=== PATIENT | female | born 1960 | race Caucasian/White ===

== ENCOUNTER 2017-05-28 06:51 | Day surgery (SDC) | payer OTHER ==
[2017-05-27 13:05] VITALS: BMI 26.4
[~2017-05-28 06:51] MED LIST: FLU VACC QS2017-18 36 mo. & older 0.5 ML SYRINGE IM ONE
[2017-05-28 07:27] VITALS: BP 141/73; TEMP 98.3
--- NOTE | 2017-05-28 10:09 | CT ---
CT MYELOGRAM OF LUMBAR SPINE: Date: 05/28/17 COMPARISON: 06/10/12. HISTORY: Bilateral lower extremity radiculopathy, back pain. TECHNIQUE: Following the intrathecal administration of iodinated contrast media, axial CT imaging at 2.5 mm int ervals obtained from lower thoracic spine through lower sacrum without IV contrast. Coronal and sagi ttal reformatted imaging obtained. FINDINGS: There are scattered atherosclerotic calcifications within the abdominal aorta and arterial structure s of the pelvis. A stimulating device is present along the ventral margin of the psoas muscle inferi michelle on the left. There are associated stimulating leads which terminate anteriorly at the L4-5 leve l. Disconnected posterior stimulating leads noted in the L4-5 region. There is no anterolisthesis or retrolisthesis seen within the lumbar spine. There are five lumbar-type vertebral bodies, the conus medullaris terminating in the T12-L1 region. T12-L1: T12 vertebral body demonstrates hypoplastic ribs. No central canal or neural foraminal stenosis. L1-2: Mild bilateral facet hypertrophy. No significant central canal or neural foraminal stenosis. L2-3: Mild bilateral facet hypertrophy with no significant central canal or neural foraminal stenosis. L3-4: There is mild disc space narrowing and mild disc bulge with partial effacement of the ventral thecal sac. There is moderate bilateral facet hypertrophy and hypertrophy of the ligamentum flavum. These findings lead to a mild to moderate degree of central canal stenosis, which does not appear signific antly changed when compared to the prior study. There is moderate left and mild right neural foramin al stenosis, not significantly changed. L4-5: There is disc space narrowing and disc desiccation with vacuum disc formation, similar when compared to the prior examination. There is mild stable anterior osteophyte formation. Laminectomy changes are present with no central canal stenosis. There is facet hypertrophy with oste ophyte encroachment on bilateral neural foramina and moderate bilateral neural foraminal stenosis, s imilar when compared to the prior exam. L5-S1: Mild bilateral facet hypertrophy. No significant central canal or neural foraminal stenosis. No worr isome lytic or blastic bone lesions. No acute osseous abnormality. IMPRESSION: Postoperative and degenerative changes within the lumbar spine, most prominent at L3-4 and L4-5 as d etailed above, not significantly changed when compared to the 2012 exam. POS: [facility]
--- NOTE | 2017-05-29 10:56 | RAD ---
LUMBAR SPINE MYELOGRAM: Date: 05/28/17 HISTORY: 56-year-old female with bilateral lower extremity radiculopathy and back pain, multiple prior back s urgeries, including prior laminectomy. FINDINGS: Informed consent for lumbar spine myelogram obtained prior to the procedure. Supervisor Offset Plate Preparation imaging demonstrates a stimulating device with numerous associated leads overlying the L3, L4, and L5 regions. There is evidence of prior laminectomy at L4-5. The lateral exam demonstrates no an terolisthesis or retrolisthesis. There is multilevel lower lumbar spine facet hypertrophy. The patient was placed in the prone position on the fluoroscopic table. Informed consent for myelogr am was obtained prior to the procedure. The skin overlying the lumbar spine was prepped and draped in the normal sterile fashion and the ski n overlying the L4-5 level was anesthetized with 1% buffered lidocaine. With intermittent fluoroscopic guidance, a 22 gauge spinal needle is advanced into the thecal sac, and removal of stylette yields clear cerebrospinal fluid. Subsequently, approximately 8 mL of Isovue -250 was injected, outlining nerve roots of the cauda equina and filling the thecal sac. Needle was removed. The patient tolerated the procedure well. EXPOSURE DATA: 0.8 minutes fluoroscopic time, 677.7 mGy*cm\S\2. IMPRESSION: Successful lumbar spine myelogram.
== END 2017-05-28 09:35 | disposition home or self-care (01) ==
LOC: RAD 06:51
PROVIDERS: ATTEND Specialist
PROC: B01B1ZZ Fluoroscopy of Spinal Cord using Low Osmolar Contrast (ICD-10-PCS; principal; 2017-05-28)
DX: M96.1 Postlaminectomy syndrome, not elsewhere classified (principal); M47.816 Spondylosis without myelopathy or radiculopathy, lumbar region; M53.3 Sacrococcygeal disorders, not elsewhere classified; M99.83 Other biomechanical lesions of lumbar region; I10 Essential (primary) hypertension; E11.8 Type 2 diabetes mellitus with unspecified complications; F17.210 Nicotine dependence, cigarettes, uncomplicated; F32.9 Major depressive disorder, single episode, unspecified; E78.00 Pure hypercholesterolemia, unspecified; Z79.890 Hormone replacement therapy; Z79.84 Long term (current) use of oral hypoglycemic drugs; Z79.899 Other long term (current) drug therapy; Z88.2 Allergy status to sulfonamides; Z88.1 Allergy status to other antibiotic agents; Z88.8 Allergy status to other drugs, medicaments and biological substances; Z98.1 Arthrodesis status; Z96.7 Presence of other bone and tendon implants; Z90.710 Acquired absence of both cervix and uterus; Z98.890 Other specified postprocedural states
CPT/HCPCS: 62304; 72120; 72132

== ENCOUNTER 2017-06-05 22:06 | Emergency (ER) | payer OTHER ==
[2017-06-05] MEDS ORDERED: Acetaminophen 500 MG TAB ONE (22:55)
[2017-06-05 23:03] LABS: Bilirubin Negative (Negative); Blood, Urine Negative (Negative); Glucose, Urine (Dipstick) Negative (Negative); Ketone, Urine Negative (Negative); Nitrite Negative (Negative); Protein, Urine (Dipstick) 30 mg/dL (Neg-Trace); Urobilinogen 0.2 mg/dL (0.2-1.0)
[2017-06-05 23:04] LABS: Bacteria/HPF None Seen HPF (None Seen); Hyaline Casts/LPF 0-3 HYALINE CAST LPF (0-3 Hyaline); RBC/HPF 0-3 HPF (0-3); Squamous Epithelial 0-3 HPF (0-3); WBC/HPF 0-3 HPF (0-3)
[2017-06-05 23:07] LABS: #Basophils 0.1 thou/uL (0.0-0.2); #Eosinphils 0.1 thou/uL (0.0-0.7); #Lymphocytes 3.3 thou/uL (1.20-3.40); #Monocytes 0.8 thou/uL (0.11-0.59); #Neutrophils 9.8 thou/uL (1.40-6.50); %Basophils 0.5 % (0.0-1.0); %Eosinophils 0.9 % (0.0-10.0); %Lymphocytes 23.4 % (21.0-51.0); %Monocytes 5.5 % (0.0-10.0); Hematocrit 43.9 % (36.0-47.0); Mean Platelet Volume 6.9 fL (7.4-10.4); White Blood Cell (WBC) Count 14.1 thou/uL (4.8-10.8)
[2017-06-05 23:32] LABS: ALT (SGPT) 15 U/L (8-55); AST (SGOT) 12 U/L (5-34); Alkaline Phosphatase 125 U/L (40-150); Anion Gap 13 mmol/L (10-20); BUN (Urea Nitrogen) 12 mg/dL (9.8-20.1); Bilirubin, Total 0.2 mg/dL (0.2-1.2); Calc. Creatinine Clearance 0 mL/min (70-130); Calcium 9.3 mg/dL (7.8-10.44); Carbon Dioxide 25 mmol/L (22-29); Chloride 107 mmol/L (98-107); Estimated GFR-MDRD 56; Protein, Total 6.9 g/dL (6.0-8.3); Troponin I Less than 0.010 ng/mL (< 0.028)
== END 2017-06-06 00:10 | disposition home or self-care (01) ==
LOC: ERS 22:06
DX: I10 Essential (primary) hypertension (principal); R51 Headache; E11.9 Type 2 diabetes mellitus without complications; E78.1 Pure hyperglyceridemia; F31.9 Bipolar disorder, unspecified; F17.210 Nicotine dependence, cigarettes, uncomplicated; Z79.84 Long term (current) use of oral hypoglycemic drugs; Z79.899 Other long term (current) drug therapy
CPT/HCPCS: 36415; 80053; 81003; 81015; 82553; 84484; 85025; 93005; 96360

== ENCOUNTER 2018-01-19 22:59 | Emergency (ER) | payer OTHER ==
[2018-01-19] MEDS ORDERED: Ketorolac Tromethamine 60 MG/2 ML VIAL ONE (23:30)
--- NOTE | 2018-01-19 23:42 | RAD ---
RIGHT KNEE FOUR VIEWS: 01/19/18 COMPARISON: 03/23/17 HISTORY: Pain. FINDINGS: Uncomplicated right knee arthroplasty. No evidence of fracture. No significant joint effusion. IMPRESSION: Unremarkable four views right knee. POS: [facility]
== END 2018-01-20 00:04 | disposition home or self-care (01) ==
LOC: SCSER 22:59
DX: G89.29 Other chronic pain (principal); M25.561 Pain in right knee; Z71.6 Tobacco abuse counseling; E11.9 Type 2 diabetes mellitus without complications; E78.2 Mixed hyperlipidemia; I10 Essential (primary) hypertension; F31.9 Bipolar disorder, unspecified; F17.210 Nicotine dependence, cigarettes, uncomplicated
CPT/HCPCS: 96372; 99406; J1885

== ENCOUNTER 2018-07-19 11:02 | Emergency (ER) | payer OTHER ==
--- NOTE | 2018-07-19 11:33 | RAD ---
LEFT ANKLE 3 VIEWS: Date: 07/19/18 HISTORY: Ankle pain, trauma, injury. FINDINGS: There is a transverse nondisplaced fracture at the distal tip of the lateral malleolus. Talar dome an d ankle mortise appear intact. IMPRESSION: Transverse fracture at the distal aspect of the left lateral malleolus. POS: [facility]
[2018-07-19] MEDS ORDERED: HYDROcodone/Acetaminophen 5/325 mg Tablet ONE (11:45)
== END 2018-07-19 12:10 | disposition home or self-care (01) ==
LOC: SCSER 11:02
DX: S82.832A Other fracture of upper and lower end of left fibula, initial encounter for closed fracture (principal); E11.9 Type 2 diabetes mellitus without complications; E78.1 Pure hyperglyceridemia; I10 Essential (primary) hypertension; F31.9 Bipolar disorder, unspecified; F17.210 Nicotine dependence, cigarettes, uncomplicated; Z79.891 Long term (current) use of opiate analgesic; Z79.84 Long term (current) use of oral hypoglycemic drugs; Z79.899 Other long term (current) drug therapy; X50.1XXA Overexertion from prolonged static or awkward postures, initial encounter
CPT/HCPCS: 29515

== ENCOUNTER 2018-08-20 16:27 | Emergency (ER) | payer OTHER ==
--- NOTE | 2018-08-20 17:15 | RAD ---
LUMBAR SPINE TWO VIEW 08/20/18 HISTORY: Pain. COMPARISON: Lumbar spine radiograph from 2017. FINDINGS: The stimulating device is similar. There is progressive narrowing of the L4-5 disc space. Mild narrow ing of L2-3, L3-4 and L5-S1 disc spaces. Laminectomy changes L4-5. Grade I L4 over L5 anterolisthesis . No acute fracture or malalignment. No acute osseous abnormality. IMPRESSION: No acute abnormality. POS: [facility]
[2018-08-20] MEDS ORDERED: Ketorolac Tromethamine 60 MG/2 ML VIAL ONE (17:17)
--- NOTE | 2018-08-20 17:20 | RAD ---
PELVIS ONE VIEW 08/20/18 HISTORY: Low back pain after a fall. COMPARISON: None. FINDINGS: No acute fracture or malalignment. The obturator rings are intact. Acetabulum are intact. Both femoral head/neck regions are intact. IMPRESSION: No acute fracture or malalignment. POS: [facility]
== END 2018-08-20 17:35 | disposition home or self-care (01) ==
LOC: SCSER 16:27
DX: M54.5 Low back pain (principal); I10 Essential (primary) hypertension; E78.5 Hyperlipidemia, unspecified; E11.9 Type 2 diabetes mellitus without complications; F17.210 Nicotine dependence, cigarettes, uncomplicated; F31.9 Bipolar disorder, unspecified; E78.1 Pure hyperglyceridemia; Z79.84 Long term (current) use of oral hypoglycemic drugs; Z79.891 Long term (current) use of opiate analgesic; Z79.899 Other long term (current) drug therapy; W18.30XA Fall on same level, unspecified, initial encounter
CPT/HCPCS: 72100; 72170; 96372; J1885

== ENCOUNTER 2018-12-08 15:07 | Outpatient (CLI) | payer OTHER | END 2018-12-08 15:08 | disposition home or self-care (01) | LOC: CTENTCT 15:07 | PROVIDERS: ATTEND Specialist | DX: J32.9 Chronic sinusitis, unspecified (principal) | CPT/HCPCS: 70486 ==

== ENCOUNTER 2018-12-16 12:39 | Day surgery (SDC) | payer OTHER ==
[2018-12-15 10:26] VITALS: BMI 25.4
[2018-12-16] MEDS ORDERED: Oxymetazoline HCl 0.05% ( 15 ML ) ONE (13:08)
[2018-12-16] MEDS ORDERED: EPINEPHrine 1 MG/ML AMP ONE (14:16)
[2018-12-16] MEDS ORDERED: Lidocaine 1% w/Epinephrine 1:100K 20 ML VIAL ONE (14:16)
[2018-12-16] MEDS ORDERED: Midazolam HCl 2 mg/2 ml Vial ONE (14:27)
[2018-12-16] MEDS ORDERED: Fentanyl 100 MCG/2 ML VIAL ONE ×3 (14:27→15:55)
[2018-12-16] MEDS ORDERED: PHENYLEPHRINE-NS 100 MCG/ML 10 ML SYRINGE ONE (15:03)
[2018-12-16] MEDS ORDERED: Lidocaine 1% PF 5 ML VIAL ONE (15:03)
[2018-12-16] MEDS ORDERED: Glycopyrrolate 0.2 MG/ML 5 ML SYRINGE ONE (15:03)
[2018-12-16] MEDS ORDERED: Rocuronium Bromide 10 MG/ML (10ML VIAL) ONE (15:03)
[2018-12-16] MEDS ORDERED: Ondansetron PF 4 MG/2 ML Vial ONE (15:03)
[2018-12-16] MEDS ORDERED: ePHEDrine 50 MG/ML VIAL ONE (15:03)
[2018-12-16] MEDS ORDERED: PROPOFOL 200 MG/20 ML VIAL ONE (15:03)
--- NOTE | 2018-12-17 08:01 | OP ---
DATE OF PROCEDURE: 12/16/2018 PREOPERATIVE DIAGNOSES: Chronic sinusitis, recurrent sinusitis, chronic facial pain, headache, cough, and hypertrophic inferior turbinates. POSTOPERATIVE DIAGNOSES: Chronic sinusitis, recurrent sinusitis, chronic facial pain, headache, cough, and hypertrophic inferior turbinates. PROCEDURES PERFORMED: 1. Bilateral nasal endoscopy with maxillary antrostomy. 2. Bilateral nasal endoscopy with total ethmoidectomy. 3. Bilateral nasal endoscopy with frontal sinusotomy. 4. Bilateral nasal endoscopy with sphenoidotomy. 5. Bilateral nasal endoscopy with submucosal resection of inferior turbinates. FINDINGS: The patient had extensive polyps throughout. DESCRIPTION OF PROCEDURE: BILATERAL NASAL ENDOSCOPY WITH MAXILLARY ANTROSTOMY: The uncinate was then identified and the extent of the uncinate was appreciated by out-fracturing the uncinate with the ball-tip probe. We then used the sickle blade to disarticulate the uncinate from the lateral nasal wall. This was then removed with straight biting and upbiting punches with the remaining shrouds of mucosa and bony septum removed with the micro-debrider. The natural os of the maxillary sinus was then identified and enlarged with the maxillary punches and back biting forceps. BILATERAL NASAL ENDOSCOPY WITH TOTAL ETHMOIDECTOMY: The anterior face of the ethmoid bulla was entered and with the micro-debrider, dissection continued posteriorly to the ground lamella. The limits of dissection included the insertion of the middle turbinate, medial orbital wall, and base of skull. We similarly identified the frontal recess and removed shrouds of bone and debris in that region to obtain patency into the agger nasi region and frontal recess. We then entered the ground lamella and its anteroinferior aspect and proceeded posteriorly, opening the posterior ethmoid air-cell system. Again, the limits of dissection included the base of skull and medial orbital wall. BILATERAL NASAL ENDOSCOPY WITH FRONTAL SINUSOTOMY: Following the ethmoidectomy, we then turned our attention to the frontal nasal recess. The agger nasi cells were addressed and the frontal recess was exposed. The natural opening to the frontal sinus was identified. At this point, any obstructing shrouds of mucosa and bony fragments were removed with a curved microdebrider. The wound was then examined and found to be free of any obstructing debris. We then turned our attention to the contralateral side and performed a similar procedure again under endoscopic visualization using a 45-degree scope. We were able to visualize the frontal recess. Obstructing shrouds of mucosa and bone were removed with a microdebrider. The natural os of frontal sinus was identified and enlarged and irrigated. At this point, the frontal sinusotomy was completed and we turned to the next area of concern. BILATERAL NASAL ENDOSCOPY WITH SPHENOIDOTOMY: The anterior face of the sphenoid was identified and entered in its extreme anteroinferior aspect. A sphenoid punch was then used to enlarge the sphenoidotomy and no injury to the optic nerve or internal carotid artery occurred. BILATERAL NASAL ENDOSCOPY WITH SUBMUCOSAL RESECTION OF INFERIOR TURBINATES: After consent was obtained, the patient was identified, brought to the operating room, and placed on the operating room table in the supine position. Consent was obtained, notifying the patient of the possibility of additional infections, bleeding, brain injury, and eye/orbital injury. The patient was placed on the operating room table, and general endotracheal anesthesia and intravenous access was obtained. The patient was then positioned, prepped and draped for endoscopic sinus surgery. Nasal preparation included trimming nasal vestibular hairs and spraying in topical Afrin. We then placed Afrin topical solution on nasal pledgets and strategically located them intranasally. The perinasal mucosa was injected with 1% lidocaine with 1:100,000 epinephrine in the submucoperichondrial plane of the septum, lateral nasal wall, and anterior to the uncinate. The patient was then prepped and draped in a sterile fashion and positioned for endoscopic sinus surgery. With the 0-degree endoscope, the patient underwent systematic nasal endoscopy. There were no suspicious internasal masses or lesions identified. We then focused our attention to the osteomeatal complex region under the middle turbinate. The inferior turbinates were visualized with a 0 degree endoscope and outfractured with a Pineda elevator. The inferior medial aspect was cauterized with the electrocautery. Hemostasis was obtained . After adequate airway was established, we turned our attention to the contralateral side and used a similar procedure. Again, a Pineda elevator was used to outfracture inferior turbinates under endoscopic visualization. With a suction cautery, the free inferior medial aspect was cauterized under direct visualization along the length of the inferior turbinate. At this point, we then turned our attention to the contralateral side and proceeded with endoscopic sinus surgery. At the completion of the case, Rice keel splints were placed in the ethmoid cavities after the ethmoidectomy. There were no complications. The patient tolerated the procedure well and was discharged to the recovery room in stable condition prior to return to the preoperative day stay with ultimate discharge home. Prescriptions for pain medication and antibiotics were provided. The patient received intramuscular Depo-Medrol during the case. Job ID: [id number]
== END 2018-12-16 17:40 | disposition home or self-care (01) ==
LOC: SDC 12:39 → EEVIPCON 12:39 → SDC 17:40
PROVIDERS: ATTEND Specialist
PROC: 099Q8ZZ Drainage of Right Maxillary Sinus, Via Natural or Artificial Opening Endoscopic (ICD-10-PCS; principal; 2018-12-16)
PROC: 09TL8ZZ Resection of Nasal Turbinate, Via Natural or Artificial Opening Endoscopic (ICD-10-PCS; principal; 2018-12-16)
PROC: 099R8ZZ Drainage of Left Maxillary Sinus, Via Natural or Artificial Opening Endoscopic (ICD-10-PCS; principal; 2018-12-16)
DX: J32.4 Chronic pansinusitis (principal); J34.3 Hypertrophy of nasal turbinates; R51 Headache; I10 Essential (primary) hypertension; E11.9 Type 2 diabetes mellitus without complications; E78.00 Pure hypercholesterolemia, unspecified; F32.9 Major depressive disorder, single episode, unspecified; Z79.899 Other long term (current) drug therapy; Z88.1 Allergy status to other antibiotic agents
CPT/HCPCS: 36415; 85014; 93005; 93010; J0171; J2001; J2250; J2405; J2704; J3010; J3490

== ENCOUNTER 2020-12-13 11:02 | Outpatient (CLI) | payer OTHER | END 2020-12-13 11:03 | disposition home or self-care (01) | LOC: BICMAMMO 11:02 | PROVIDERS: ATTEND Family Medicine | DX: Z12.31 Encounter for screening mammogram for malignant neoplasm of breast (principal); Z80.3 Family history of malignant neoplasm of breast | CPT/HCPCS: 77063; 77067 ==

== ENCOUNTER 2021-09-21 10:28 | Emergency (ER) | payer OTHER | END 2021-09-21 12:03 | disposition home or self-care (01) | LOC: ERS 10:28 | DX: S90.01XA Contusion of right ankle, initial encounter (principal); S90.31XA Contusion of right foot, initial encounter; I10 Essential (primary) hypertension; E11.9 Type 2 diabetes mellitus without complications; E78.2 Mixed hyperlipidemia; F17.210 Nicotine dependence, cigarettes, uncomplicated; W20.8XXA Other cause of strike by thrown, projected or falling object, initial encounter ==

== ENCOUNTER 2022-06-14 18:53 | Emergency (ER) | payer OTHER ==
[2022-06-14 19:19] LABS: Bacteria/HPF 3+ HPF (None Seen); Bilirubin Negative (Negative); Blood, Urine 3+ (Negative); Clarity Turbid (Clear); Glucose, Urine (Dipstick) Normal (Negative); Ketone, Urine Negative (Negative); Leukocyte 500 Leu/uL (Negative); Nitrite Negative (Negative); Protein, Urine (Dipstick) 20 mg/dL (Neg-Trace); Specific Gravity, Urine 1.003 (1.002-1.036); Urobilinogen Normal mg/dL (Less than 2); WBC/HPF Greater than 50 HPF (0-3)
[2022-06-14] MEDS ORDERED: Fosfomycin 3 GM/Packet PO SCH (20:45)
== END 2022-06-14 21:10 | disposition home or self-care (01) ==
LOC: ERS 18:53
DX: N39.0 Urinary tract infection, site not specified (principal); I10 Essential (primary) hypertension; E11.9 Type 2 diabetes mellitus without complications; E78.2 Mixed hyperlipidemia; F17.210 Nicotine dependence, cigarettes, uncomplicated
CPT/HCPCS: 81003; 81015; 87077; 87086; 87186; 99283

== ENCOUNTER 2024-06-03 18:18 | Emergency (ER) | payer OTHER | END 2024-06-03 20:04 | disposition home or self-care (01) | LOC: ERS 18:18 | DX: M79.631 Pain in right forearm (principal); L53.9 Erythematous condition, unspecified; E11.9 Type 2 diabetes mellitus without complications; E78.1 Pure hyperglyceridemia; I10 Essential (primary) hypertension; F17.210 Nicotine dependence, cigarettes, uncomplicated; Z79.899 Other long term (current) drug therapy | CPT/HCPCS: 99283 ==

== ENCOUNTER 2025-03-27 13:56 | Emergency (ER) | payer MEDICAID ==
[~2025-03-27 13:56] MED LIST changes: -FLU VACC QS2017-18 36 mo. & older 0.5 ML SYRINGE IM ONE; +Iopamidol-370 76% 500 ML MDV (1 ML CHARGE) ONE
[2025-03-27 14:39] LABS: Bacteria/HPF 4+ HPF (None Seen); CAUTI Indications for Culture Pelvic or flank pain; Glucose, Urine (Dipstick) Normal (Negative); Leukocyte Negative Leu/uL (Negative); Protein, Urine (Dipstick) Negative (Neg-Trace); RBC/HPF 0-3 HPF (0-3); Specific Gravity, Urine 1.027 (1.002-1.036)
[2025-03-27 14:40] LABS: Urine Culture Reflex No No
[2025-03-27 16:29] LABS: #Basophils 0.06 10x3/uL (0.0-0.2); #Eosinophils 0.18 10x3/uL (0.0-0.7); #Monocytes 0.50 10x3/uL (0.11-0.59); #Neutrophils 8.14 10x3/uL (1.40-6.50); %Basophils 0.4 % (0.0-1.0); %Eosinophils 1.3 % (0.0-10.0); %Lymphocytes 33.7 % (21.0-51.0); %Monocytes 3.7 % (0.0-10.0); %Neutrophils 60.6 % (42.0-75.0); Hematocrit 40.3 % (36.0-47.0); Hemoglobin 13.2 g/dL (12.0-16.0); Mean Corpuscular Hemoglobin 29.3 pg (27.0-31.0); Mean Corpuscular Volume 89.6 fL (78.0-98.0); Platelet Count 319 10x3/uL (130-400); Red Blood Cell (RBC) Count 4.50 mill/uL (4.20-5.40); White Blood Cell (WBC) Count 13.46 10x3/uL (4.8-10.8)
[2025-03-27 16:50] LABS: ALT (SGPT) 13 U/L (Less than 34); AST (SGOT) 17 U/L (11-34); Albumin 3.9 g/dL (3.1-4.5); Alkaline Phosphatase 65 U/L (40-110); Anion Gap 14 mmol/L (10-20); BUN (Urea Nitrogen) 22 mg/dL (9.8-20.1); Bilirubin, Total 0.2 mg/dL (0.3-1.2); Calc. Creatinine Clearance 0 mL/min (70-130); Calcium 8.6 mg/dL (7.8-10.44); Carbon Dioxide 21 mmol/L (23-31); Chloride 108 mmol/L (98-107); Globulin 3.0 g/dL (2.4-3.5); Glucose 157 mg/dL (80-115); Lipase 47 U/L (8-78); Potassium 3.8 mmol/L (3.5-5.1); Sodium 139 mmol/L (136-145)
== END 2025-03-27 19:08 | disposition home or self-care (01) ==
LOC: ERS 13:56
DX: R10.32 Left lower quadrant pain (principal); R82.71 Bacteriuria; R91.1 Solitary pulmonary nodule; E11.9 Type 2 diabetes mellitus without complications; I10 Essential (primary) hypertension; E78.00 Pure hypercholesterolemia, unspecified; F17.210 Nicotine dependence, cigarettes, uncomplicated; Z79.85 Long-term (current) use of injectable non-insulin antidiabetic drugs; Z79.899 Other long term (current) drug therapy
CPT/HCPCS: 74177; 80053; 81001; 83690; 85025